=== PATIENT | female | born 1940 ===

== ENCOUNTER 2019-08-14 16:41 | Emergency (ER) | payer MEDICARE ==
[~2019-08-14] VITALS: Ht 167.6 cm; Wt 74.0 kg
[~2019-08-14 16:41] MED LIST: AMLO10TA8 PO; AMOX1TAB64 PO; ASPI-496 PO; ATEN100T PO; ATOR20TA PO; GLIP10TA13 PO; HYDR-3343 PO; LISI40TA PO; POLY17PO5 PO; SAXA5TAB PO; TRAM50TA2 PO
[2019-08-14 17:01] VITALS: BP 127/79
--- NOTE | 2019-08-14 17:14 | NUR ---
PT HERE WITH RIGHT BIG TOE PAIN S/P STUBBING TOE APPROX. 1 WEEK AGO.
[2019-08-14] MEDS ORDERED: IBUPROFEN 200 MG TABLET ONE (17:20)
--- NOTE | 2019-08-14 17:23 | NUR ---
PT MEDICATED PER ORDER.
[2019-08-14] MEDS ORDERED: IBUPROFEN 200 MG TABLET PO ONE (17:30)
--- NOTE | 2019-08-14 18:05 | NUR ---
[facility] 186. ROCKER BOOT APPLIED PER PT REQUEST.
--- NOTE | 2019-08-14 18:15 | NUR ---
Patient/Caregiver given discharge instructions and they have confirmed that they understand the instructions. Patient ambulatory with steady gait.
== END 2019-08-14 18:16 | disposition home or self-care (01) ==
LOC: ED 18:14
DX: S93.521A Sprain of metatarsophalangeal joint of right great toe, initial encounter (principal); S93.511A Sprain of interphalangeal joint of right great toe, initial encounter; I10 Essential (primary) hypertension; E11.9 Type 2 diabetes mellitus without complications; X58.XXXA Exposure to other specified factors, initial encounter; Y93.89 Activity, other specified; Y92.89 Other specified places as the place of occurrence of the external cause; Y99.8 Other external cause status
CPT/HCPCS: 82962; 99283